=== PATIENT | female | born 1975 | race Caucasian/White ===

== ENCOUNTER → 2016-12-06 | Outpatient (CLI) | payer BC ==
--- NOTE | 2016-12-06 14:08 | DIAGNOSTIC IMAGING REPORT ---
ABDOMEN 2VIEW W/PA CHEST RTN HISTORY: 41 years-old Female R10.9 Abdominal pain COMPARISON: None available TECHNIQUE: Frontal view of the chest with erect and supine views of the abdomen. FINDINGS: The cardiomediastinal and hilar silhouettes are within normal limits. There is no pneumothorax, pleural effusion, focal airspace consolidation or overt pulmonary edema. Bones of the thorax appears intact. There is mild convex right curvature of the midthoracic spine. There is mild gaseous distention of the stomach. 5 mm calcification projects over the superior pole left kidney. Likely phleboliths are seen within the pelvis. The bowel gas pattern is nonobstructive. There is moderate volume of formed stool within the right hemicolon. Mild degenerative changes involve the bilateral hips. IMPRESSION: 1. No acute cardiopulmonary process. 2. Mild gaseous distention of the stomach without evidence of bowel obstruction. 3. 5 mm left superior pole renal calculus. The above report was generated using voice recognition software. It may contain grammatical, syntax or spelling errors. Electronically signed by: Ayo Beltran M.D. 12/06/2016 2:07 PM Dictated Date/Time: 12/06/2016 2:04 PM
[2016-12-06 17:29] LABS: BASO % 0.3 %; BASO ABS # 0.02 K/uL (0-0.2); COMPLETE YES; EOS % 3.1 %; IG% 0.3 %; LYMPH % 25.4 %; LYMPH ABS # 1.74 K/uL (1.2-3.4); MEAN CELL VOLUME 95.6 fL (80-100); MEAN CORPUSCULAR HEMOGLOBIN 31.6 pg (25-34); MEAN CORPUSCULAR HGB CONC 33.1 g/dl (32-36); MEAN PLATELET VOLUME 10.1 fL (7.4-10.4); MONO % 7.4 %; NEUT % 63.5 %; PLATELET COUNT 297 K/uL (130-400); RED BLOOD COUNT 4.08 M/uL (4.2-5.4); WHITE BLOOD COUNT 6.85 K/uL (4.8-10.8)
[2016-12-06 17:41] LABS: AMYLASE 47 U/L (25-115); BLOOD UREA NITROGEN 16 mg/dl (7-18); BUN/CREATININE RATIO 17.5 (10-20); CALCIUM 9.8 mg/dl (8.5-10.1); CARBON DIOXIDE 27 mmol/L (21-32); CHLORIDE 105 mmol/L (98-107); CREATININE 0.89 mg/dl (0.60-1.20); GLUCOSE 96 mg/dl (70-99); POTASSIUM 3.7 mmol/L (3.5-5.1); SODIUM 141 mmol/L (136-145)
[2016-12-06 17:45] LABS: ALB/GLOB RATIO 1.1 (0.9-2); ALKALINE PHOSPHATASE 72 U/L (45-117); ALT/SGPT 29 U/L (12-78); AST/SGOT 16 U/L (15-37)
== END | disposition home or self-care (01) ==
LOC: C.LABBFT 12:54
PROVIDERS: ATTEND Physician Assistant Medical
DX: R10.9 Unspecified abdominal pain (principal); N20.0 Calculus of kidney

== ENCOUNTER → 2017-02-16 | Outpatient (CLI) | payer BC ==
--- NOTE | 2017-02-17 08:29 | MAMMOGRAPHY REPORT ---
BILATERAL DIGITAL SCREENING MAMMOGRAM TOMOSYNTHESIS WITH CAD: 02/16/2017 CLINICAL HISTORY: Routine screening. Patient has no complaints. TECHNIQUE: Breast tomosynthesis in addition to standard 2D mammography was performed. Current study was also evaluated with a Computer Aided Detection (CAD) system. COMPARISON: Comparison is made to exams dated: 01/11/2016 mammogram, 12/26/2014 mammogram, 10/01/2013 m ammogram, 05/12/2010 mammogram - [facility], 12/31/2007, and 12/22/2006. BREAST COMPOSITION: There are scattered areas of fibroglandular density in both breasts. FINDINGS: No suspicious masses, calcifications, or areas of architectural distortion are noted in ei ther breast. There has been no significant interval change compared to prior exams. Scattered bilater al benign-appearing calcifications are not significantly changed. Linear scar markers denote scars o n bilateral upper outer breasts. IMPRESSION: ACR BI-RADS CATEGORY 2: BENIGN There is no mammographic evidence of malignancy. A 1 year screening mammogram is recommended. The pa tient will receive written notification of the results. Approximately 10% of breast cancers are not detected with mammography. A negative mammographic report should not delay biopsy if a clinically suggestive mass is present. Nery Brewster M.D. ah/:02/16/2017 15:46:50 Emergency Dispatcher: Altagracia MAZA(Carmelo)(M), [facility] letter sent: Normal 1/2 BI-RADS Code: ACR BI-RADS Category 2: Benign
== END | disposition home or self-care (01) ==
LOC: C.MAMM 15:19
PROVIDERS: ATTEND Obstetrics & Gynecology
DX: Z12.31 Encounter for screening mammogram for malignant neoplasm of breast (principal)

== ENCOUNTER 2020-09-01 02:43 | Inpatient (IN) ==
[2020-09-01] MEDS ORDERED: SODIUM CHLORIDE 0.9% 1000ML 1,000 ML IV ONE ×2 (02:59→05:31)
[2020-09-01] MEDS ORDERED: KETOROLAC TROMETHAMINE 15 MG/ML VIAL IV STA (02:59)
[2020-09-01] MEDS ORDERED: ONDANSETRON INJ 2 MG/ML 2 ML VIAL IV STA (02:59)
--- NOTE | 2020-09-01 03:02 | Emergency Department Note ---
Impression & Plan Calculus of proximal left ureter, Hydronephrosis, left ED Provider Note Name: MALENA YEE Age: 45 Sex: F Arrives Via: Walk-In Informant: Patient ED Provider: Tavo Miller MD Chief Complaint: left flank pain Impression: Calculus of proximal left ureter Left Hydronephrosis Medical Decision Makin yr old healthy female without PMH arrives for acute left flank pain overnight. Uncomfortable on arrival though did seem to do well with Toradol initially. CT obtained reveals proximal left ureteral stone with hydro. Labs unremarkable. UA with 4+ bacteria though also some epithelia cells. Complicating this was an episode of hypotension with SBP 70s, which responded to NSS bolus without issue. Patient without symptoms during this other than feeling tired, no chest pain, syncope, nor other symptoms. Labs without wbc elevation and no fever. Seems unlikely sepsis. Rocephin was given for urine coverage after discussion with Urologist and hospitalist will bring in for monitoring/management. Patient comfortable with plan. Triage/Nursing Notes reviewed by Me Differentials:Renal colic, UTI, appendicitis, diverticulitis, mesenteric ischemia, aortic pathology, infections, inflammatory bowel disease, PUD, biliary pathology, as well as other pathologies. Vital Signs: reviewed and remarkable for no significant abnormalities Interventions: saline lock, nss bolus, toradol iv, dilaudid iv, rocephin iv Labs:Reviewed and remarkable for no significant abnormalities Imaging:[facility] Radiologist interpretation reviewed by me: left prox 7mm ureteral stone Consults:Dr Sesay Uro, Dr Villar Hospitalist Plan: Disposition:Hospitalization. Condition: Good History of Present Illness:45 yr old female arrives for evaluation of left flank pain. Notes sudden onset left flank pain radiating from left back to left lower abdomen. Associated with nausea. Comes in waves. Nothing makes better nor worse. No trauma nor injury. Used Advil with minimal relief earlier in evening. Had chills earlier which have resolved. No fevers, chest pain, shortness of breath, vomiting, rashes, headache, neck, leg swelling, nor other symptoms. History of Hysterectomy. No new medications, no diets, no new work- out routines. ROS: See above HPI for pertinent positives & negatives. A total of 10 systems reviewed and were otherwise negative. 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 EYES: No scleral icterus, unremarkable pupils. ENT: Mucous membranes moist, no nasal congestion. NECK: No masses appreciated, nomeningismus, trachea is midline. RESPIRATORY: No dyspnea. Clear to auscultation and equal bilaterally. No wheeze, no rhonchi. CARDIOVASCULAR: Regular rate and rhythm.No murmurs, rubs, gallops appreciated. GASTROINTESTINAL: Abdomen soft, non-tender, no peritonitis.Bowel sounds positive.No masses appreciated. BACK: No midline tenderness, no CVA tenderness EXTREMITIES: Normal motion all extremities, no cyanosis, no edema. NEUROLOGIC: Alert and oriented, no acute motor or sensory deficits, no focal weakness, cranial nerves grossly intact. SKIN: No rash, no jaundice, no diaphoresis. PSYCH: Appropriate GCS: 15 ED Course: Times/Reassessments: Stable, did have hypotension responded to iv fluids Tavo Miller MD Past Med/Surg History Surgical History (Updated 09/01/20 @ 06:33 by Kandy Villar DO) History of Family History (Updated 09/01/20 @ 06:33 by Kandy Villar DO) Other Diabetes Hypertension Social History (Updated 09/01/20 @ 06:34 by Kandy Villar DO) Smoking Status: Never smoker Hx Alcohol Use: No Hx Substance Use: No Preferred Language: Maltese Feels Safe at Home: Yes Allergies Allergies Allergy/AdvReac Type Severity Reaction Status Date / Time banana Allergy Mild Unknown Verified 09/01/20 02:52 Penicillins Allergy Unknown HIVES Verified 09/01/20 02:52 amoxicillin Allergy Unknown Verified 09/01/20 02:52 Home Meds Home Medications Medication Instructions Recorded Confirmed No Known Home Medications 09/01/20 09/01/20 Results & Data (ED) Vital Signs Vital Signs - 24 hr 09/01/20 02:46 09/01/20 03:13 09/01/20 04:00 Temperature 36.4 C L Temperature Source Temporal Artery Scan Pulse Rate 91 H 90 59 L Pulse Rate [Right Finger] Pulse Rate from SpO2 Sensor Pulse Rhythm Regular Pulse Rhythm [Right Finger] Pulse Strength Normal Pulse Strength [Right Finger] Respiratory Rate 20 22 15 Respiratory Effort / Characteristics Non-Labored Respiratory Depth Normal Respiratory Pattern Regular Blood Pressure 123/72 114/74 77/44 L Blood Pressure [Right Arm] Blood Pressure Mean 89 87 55 Blood Pressure Mean [Right Arm] Blood Pressure Position Sitting Pulse Oximetry 100 99 99 Oxygen Delivery Method Room Air Sepsis Recent Fever Within 48 Hours No Sepsis New/Unexplained Change in Mental Status N/A Sepsis Action Taken by Nursing No Action Required 09/01/20 04:03 09/01/20 04:25 09/01/20 05:00 Temperature Temperature Source Pulse Rate 72 90 97 H Pulse Rate [Right Finger] 65 Pulse Rate from SpO2 Sensor Pulse Rhythm Pulse Rhythm [Right Finger] Regular Pulse Strength Pulse Strength [Right Finger] Normal Respiratory Rate 15 21 23 Respiratory Effort / Characteristics Non-Labored Spontaneous Respiratory Depth Normal Respiratory Pattern Blood Pressure 79/49 L 108/56 L 107/73 Blood Pressure [Right Arm] 79/47 L Blood Pressure Mean 59 73 84 Blood Pressure Mean [Right Arm] 57 Blood Pressure Position Pulse Oximetry 100 99 99 Oxygen Delivery Method Room Air Sepsis Recent Fever Within 48 Hours Sepsis New/Unexplained Change in Mental Status Sepsis Action Taken by Nursing 09/01/20 06:00 09/01/20 06:30 Temperature Temperature Source Pulse Rate 102 H 93 H Pulse Rate [Right Finger] Pulse Rate from SpO2 Sensor 93 H Pulse Rhythm Pulse Rhythm [Right Finger] Pulse Strength Pulse Strength [Right Finger] Respiratory Rate 20 21 Respiratory Effort / Characteristics Respiratory Depth Respiratory Pattern Blood Pressure 98/66 L Blood Pressure [Right Arm] Blood Pressure Mean 76 Blood Pressure Mean [Right Arm] Blood Pressure Position Pulse Oximetry 98 98 Oxygen Delivery Method Sepsis Recent Fever Within 48 Hours Sepsis New/Unexplained Change in Mental Status Sepsis Action Taken by Nursing Laboratory Data Result diagrams: 09/01/20 03:05 09/01/20 03:05 Lab Results 09/01/20 09/01/20 09/01/20 Range/Units 03:05 03:05 04:52 WBC 7.80 (4.8-10.8) K/uL RBC 4.00 L (4.2-5.4) M/uL Hgb 12.7 (12.0-16.0) g/dL Hct 37.4 (37-47) % MCV 93.5 (80-100) fL MCH 31.8 (25-34) pg MCHC 34.0 (32-36) g/dL RDW Std Deviation 44.6 (36.4-46.3) fL RDW Coeff of Danis 12.9 (11.5-14.5) % Plt Count 235 (130-400) K/uL MPV 9.3 (7.4-10.4) fL Immature Gran % (Auto) 0.3 % Neut % (Auto) 77.7 % Lymph % (Auto) 14.6 % [place] % (Auto) 4.9 % Eos % (Auto) 2.4 % Baso % (Auto) 0.1 % Neut # (Auto) 6.06 (1.4-6.5) K/uL Lymph # (Auto) 1.14 L (1.2-3.4) K/uL [place] # (Auto) 0.38 (0.11-0.59) K/uL Eos # (Auto) 0.19 (0-0.5) K/uL Baso # (Auto) 0.01 (0-0.2) K/uL Immature Gran # (Auto) 0.02 (0.00-0.02) K/uL Sodium 140 (136-145) mmol/L Potassium 3.7 (3.5-5.1) mmol/L Chloride 108 H (98-107) mmol/L Carbon Dioxide 25 (21-32) mmol/L Anion Gap 7.0 (3-11) BUN 14 (7-18) mg/dl Creatinine 0.92 (0.6-1.2) mg/dl Est Cr Clr Drug Dosing 77.9 ml/min Est GFR ( Amer) 85.9 Est GFR (Non-Af Amer) 74.2 BUN/Creatinine Ratio 15.6 (10-20) Glucose 149 H (70-99) mg/dl Calcium 8.6 (8.5-10.1) mg/dl Total Bilirubin 0.4 (0.2-1) mg/dl Direct Bilirubin 0.1 (0-0.2) mg/dl AST 18 (15-37) U/L ALT 46 (12-78) U/L Alkaline Phosphatase 69 (45-117) U/L Total Protein 7.3 (6.4-8.2) gm/dl Albumin 3.8 (3.4-5.0) gm/dl Lipase 136 (73-393) U/L Urine Color Yellow Urine Appearance Cloudy A (Clear) Urine pH 7.0 (4.5-7.5) Ur Specific [place] 1.019 (1.000-1.030) Urine Protein Trace H (Negative) Urine Glucose (UA) Negative (Negative) Urine Ketones Negative (Negative) Urine Blood 3+ H (Negative) Urine Nitrite Positive A (Negative) Urine Bilirubin Negative (Negative) Urine Urobilinogen Negative (Negative) Ur Leukocyte Esterase 1+ H (Negative) Urine WBC (Auto) >30 H (0-5) /hpf Urine RBC (Auto) >30 H (0-4) /hpf U Hyaline Cast (Auto) 10-30 H (0-5) /lpf U Epithel Cells (Auto) 10-20 H (0-5) /lpf Urine Bacteria (Auto) 4+ H (Negative) COVID-19 Eval Order SARS-CoV-2 (PCR) (Negative) Influenza Type A (PCR) (Neg) Influenza Type B (PCR) (Neg) RSV (RT-PCR) (Neg) 09/01/20 09/01/20 Range/Units 05:36 05:36 WBC (4.8-10.8) K/uL RBC (4.2-5.4) M/uL Hgb (12.0-16.0) g/dL Hct (37-47) % MCV (80-100) fL MCH (25-34) pg MCHC (32-36) g/dL RDW Std Deviation (36.4-46.3) fL RDW Coeff of Danis (11.5-14.5) % Plt Count (130-400) K/uL MPV (7.4-10.4) fL Immature Gran % (Auto) % Neut % (Auto) % Lymph % (Auto) % [place] % (Auto) % Eos % (Auto) % Baso % (Auto) % Neut # (Auto) (1.4-6.5) K/uL Lymph # (Auto) (1.2-3.4) K/uL [place] # (Auto) (0.11-0.59) K/uL Eos # (Auto) (0-0.5) K/uL Baso # (Auto) (0-0.2) K/uL Immature Gran # (Auto) (0.00-0.02) K/uL Sodium (136-145) mmol/L Potassium (3.5-5.1) mmol/L Chloride (98-107) mmol/L Carbon Dioxide (21-32) mmol/L Anion Gap (3-11) BUN (7-18) mg/dl Creatinine (0.6-1.2) mg/dl Est Cr Clr Drug Dosing ml/min Est GFR ( Amer) Est GFR (Non-Af Amer) BUN/Creatinine Ratio (10-20) Glucose (70-99) mg/dl Calcium (8.5-10.1) mg/dl Total Bilirubin (0.2-1) mg/dl Direct Bilirubin (0-0.2) mg/dl AST (15-37) U/L ALT (12-78) U/L Alkaline Phosphatase (45-117) U/L Total Protein (6.4-8.2) gm/dl Albumin (3.4-5.0) gm/dl Lipase (73-393) U/L Urine Color Urine Appearance (Clear) Urine pH (4.5-7.5) Ur Specific [place] (1.000-1.030) Urine Protein (Negative) Urine Glucose (UA) (Negative) Urine Ketones (Negative) Urine Blood (Negative) Urine Nitrite (Negative) Urine Bilirubin (Negative) Urine Urobilinogen (Negative) Ur Leukocyte Esterase (Negative) Urine WBC (Auto) (0-5) /hpf Urine RBC (Auto) (0-4) /hpf U Hyaline Cast (Auto) (0-5) /lpf U Epithel Cells (Auto) (0-5) /lpf Urine Bacteria (Auto) (Negative) COVID-19 Eval Order CovFluRsv at [facility] SARS-CoV-2 (PCR) NEGATIVE (Negative) Influenza Type A (PCR) Negative (Neg) Influenza Type B (PCR) Negative (Neg) RSV (RT-PCR) Negative (Neg) Administered Medications Hydromorphone HCl (Hydromorphone Inj 0.5 Mg/0.5 Ml Syr) 0.5 mg IV Q15M PRN PRN Reason: Pain Stop: 09/15/20 05:30 Last Admin: 09/01/20 05:46 Dose: 0.5 mg Documented by: [id number] Discontinued Medications Hydromorphone HCl (Hydromorphone Inj 0.5 Mg/0.5 Ml Syr) 0.5 mg IV NOW STA Stop: 09/01/20 04:54 Last Admin: 09/01/20 04:56 Dose: 0.5 mg Documented by: [id number] Sodium Chloride (Nss 1000ml) 1,000 mls @ 999 mls/hr IV .Q1H1M ONE Stop: 09/01/20 03:59 Last Infusion: 09/01/20 04:47 Dose: 0 mls/hr Documented by: [id number] Admin: 09/01/20 03:13 Dose: 999 mls/hr Documented by: [id number] Sodium Chloride (Nss 1000ml) 1,000 mls @ 999 mls/hr IV .Q1H1M ONE Stop: 09/01/20 06:31 Last Infusion: 09/01/20 07:00 Dose: 0 mls/hr Documented by: [id number] Admin: 09/01/20 05:46 Dose: 999 mls/hr Documented by: [id number] Ceftriaxone Sodium (Rocephin) 2,000 mg in 70 mls @ 140 mls/hr IV NOW STA Stop: 09/01/20 06:00 Last Infusion: 09/01/20 06:25 Dose: 0 mls/hr Documented by: [id number] Admin: 09/01/20 05:44 Dose: 140 mls/hr Documented by: [id number] Ketorolac Tromethamine (Ketorolac Tromethamine 15 Mg/Ml Vial) 15 mg IV NOW STA Stop: 09/01/20 03:00 Last Admin: 09/01/20 03:13 Dose: 15 mg Documented by: [id number] Ondansetron HCl (Ondansetron Inj 2 Mg/Ml 2 Ml Vial) 4 mg IV NOW STA Stop: 09/01/20 03:00 Last Admin: 09/01/20 03:13 Dose: 4 mg Documented by: [id number] Discharge Plan Visit Data Chief Complaint: Flank Pain Stated Complaint: PAIN IN LEFT SIDE ED Provider: Tavo Miller Discharge Problem: Calculus of proximal left ureter, Hydronephrosis, left Patient Disposition: Admitted As Inpatient Discharge Instructions Interventions: ED Discharge Assessment Last Done: 09/01/20 07:30
[2020-09-01 03:16] LABS: Basophils # (auto) 0.01 K/uL (0-0.2); Basophils % (auto) 0.1 %; Eosinophils # (auto) 0.19 K/uL (0-0.5); Eosinophils % (auto) 2.4 %; Hematocrit (blood only) 37.4 % (37-47); Hemoglobin 12.7 g/dL (12.0-16.0); Immature Granulocytes # (auto) 0.02 K/uL (0.00-0.02); Immature Granulocytes % (auto) 0.3 %; Lymphocytes # (auto) 1.14 K/uL (1.2-3.4); Lymphocytes % (auto) 14.6 %; Mean Corpuscular Hemoglobin 31.8 pg (25-34); Mean Corpuscular Volume 93.5 fL (80-100); Mean Platelet Volume 9.3 fL (7.4-10.4); Monocytes # (auto) 0.38 K/uL (0.11-0.59); Monocytes % (auto) 4.9 %; Neutrophils # (auto) 6.06 K/uL (1.4-6.5); Neutrophils % (auto) 77.7 %; Platelet Count 235 K/uL (130-400); RDW Coefficient of Variation 12.9 % (11.5-14.5); RDW Standard Deviation 44.6 fL (36.4-46.3)
[2020-09-01 03:35] LABS: Albumin Level 3.8 gm/dl (3.4-5.0); BUN Creatinine Ratio 15.6 (10-20); Bilirubin Direct 0.1 mg/dl (0-0.2); Calcium 8.6 mg/dl (8.5-10.1); Creatinine Clr Calc Pharmacy 77.9 ml/min; Est GFR (African American) 85.9; Est GFR (Non-African American) 74.2; Potassium 3.7 mmol/L (3.5-5.1)
[2020-09-01 03:37] LABS: Bilirubin,Total 0.4 mg/dl (0.2-1); Total Protein 7.3 gm/dl (6.4-8.2)
[2020-09-01] MEDS ORDERED: HYDROmorphone INJ 0.5 MG/0.5 ML SYR IV STA (04:53)
[2020-09-01 05:18] LABS: Appearance Urine Cloudy (Clear); Bacteria Urine Automated 4+ (Negative); Bilirubin Urine Negative (Negative); Blood Urine 3+ (Negative); Color Urine Yellow; Glucose Urine UA Negative (Negative); Ketones Urine Negative (Negative); Leukocyte Esterase Urine 1+ (Negative); Nitrite Urine Positive (Negative); Protein Urine Trace (Negative); RBC Urine Automated >30 /hpf (0-4); Specific Gravity Urine 1.019 (1.000-1.030); Urobilinogen Urine Negative (Negative); WBC Urine Automated >30 /hpf (0-5)
[2020-09-01] MEDS ORDERED: HYDROmorphone INJ 0.5 MG/0.5 ML SYR IV PRN (05:31)
[2020-09-01] MEDS ORDERED: cefTRIAXone SODIUM 2,000 MG/70 ML BAG IV STA (05:31)
[2020-09-01 06:24] LABS: Influenza A virus by PCR Negative (Neg); Influenza B virus by PCR Negative (Neg); RSV by PCR Negative (Neg); SARS CoV2 RNA(COVID-19) InHosp NEGATIVE (Negative)
--- NOTE | 2020-09-01 06:36 | History & Physical Report ---
Date of Service September 01, 2020 Assessment & Plan (1) Hydronephrosis with obstructing calculus: -Admit to medical with telemetry -Continue IVF -Zofran PRN -Tylenol PRN -Ceftriaxone 1 gm IV daily -Strain urine -Flomax 0.4mg po daily -Toradol PRN pain -Dilaudid PRN pain -Urology consultation appreciated F/E/N - NSS, electroltyes WNL, NPO for now Ppx - Low risk Code - Full Dispo - Admit to medical with telemetry Present on Admission?: Yes History of Present Illness Chief Complaint: left flank pain Primary Care Provider: Toby Hays MD 45yo female with left flank pain with radiation into left groin, worsening last night around 19:00. Found with 7mm obstructing stone with hydronephrosis and UTI. Pain controlled at present, no additional complaints at this time ER Course: Ceftriaxone, Dilaudid, Toradol, Zofran, NSS Allergies Allergy/AdvReac Type Severity Reaction Status Date / Time banana Allergy Mild Unknown Verified 09/01/20 02:52 Penicillins Allergy Unknown HIVES Verified 09/01/20 02:52 amoxicillin Allergy Unknown Verified 09/01/20 02:52 Home Medications Medication Instructions Recorded Confirmed Type No Known Home Medications 09/01/20 09/01/20 History Past Med/Surg History Surgical History (Updated 09/01/20 @ 06:33 by Kandy Villar DO) History of Family History (Updated 09/01/20 @ 06:33 by Kandy Villar DO) Other Diabetes Hypertension Social History (Updated 09/01/20 @ 06:34 by Kandy Villar DO) Smoking Status: Never smoker Hx Alcohol Use: No Hx Substance Use: No Preferred Language: Mosotho Feels Safe at Home: Yes Review of Systems Review of Systems: All systems reviewed & are unremarkable except as noted in HPI & below Physical Exam Physical Exam: General: patient resting comfortably, NAD, non-toxic in appearance, AA&O x 4 Skin: warm, dry, intact, no rashes or lesions HEENT: NC/AT, PERRL, EOMI, anicteric sclera, conjunctiva without injection, external ear normal to inspection and nontender, nares patent, moist mucus membranes, dentition intact, no oropharyngeal lesions, neck supple, trachea midline, no LAD, no thyromegaly, no JVD Heart: +S1/S2, regular, no m/r/g Lungs: equal air entry bilaterally, no rales/rhonchi/wheezes Abd: +BS, soft, NT/ND, no masses/organomegaly/ascites Ext: warm, 2+ pulses in UE/LE bilaterally, no clubbing/cyanosis or edema Neuro: nonfocal, patient AA&O x 4, speech intact, no facial droop, moving all extremities on command with equal strength 5/5 Results & Data Results & Data ([facility]) Vital Signs (Past 12 Hours) Vital Signs Temp Pulse Pulse Resp BP BP Pulse Ox 09/01/20 06:00 102 H 20 98/66 L 98 09/01/20 05:00 97 H 23 107/73 99 09/01/20 04:25 90 21 108/56 L 99 09/01/20 04:03 72 65 15 79/49 L 79/47 L 100 09/01/20 04:00 59 L 15 77/44 L 99 09/01/20 03:13 90 22 114/74 99 09/01/20 02:46 36.4 C L 91 H 20 123/72 100 Laboratory Results Lab Results 09/01/20 09/01/20 09/01/20 Range/Units 03:05 03:05 04:52 WBC 7.80 (4.8-10.8) K/uL RBC 4.00 L (4.2-5.4) M/uL Hgb 12.7 (12.0-16.0) g/dL Hct 37.4 (37-47) % MCV 93.5 (80-100) fL MCH 31.8 (25-34) pg MCHC 34.0 (32-36) g/dL RDW Std Deviation 44.6 (36.4-46.3) fL RDW Coeff of Danis 12.9 (11.5-14.5) % Plt Count 235 (130-400) K/uL MPV 9.3 (7.4-10.4) fL Immature Gran % (Auto) 0.3 % Neut % (Auto) 77.7 % Lymph % (Auto) 14.6 % [place] % (Auto) 4.9 % Eos % (Auto) 2.4 % Baso % (Auto) 0.1 % Neut # (Auto) 6.06 (1.4-6.5) K/uL Lymph # (Auto) 1.14 L (1.2-3.4) K/uL [place] # (Auto) 0.38 (0.11-0.59) K/uL Eos # (Auto) 0.19 (0-0.5) K/uL Baso # (Auto) 0.01 (0-0.2) K/uL Immature Gran # (Auto) 0.02 (0.00-0.02) K/uL Sodium 140 (136-145) mmol/L Potassium 3.7 (3.5-5.1) mmol/L Chloride 108 H (98-107) mmol/L Carbon Dioxide 25 (21-32) mmol/L Anion Gap 7.0 (3-11) BUN 14 (7-18) mg/dl Creatinine 0.92 (0.6-1.2) mg/dl Est Cr Clr Drug Dosing 77.9 ml/min Est GFR ( Amer) 85.9 Est GFR (Non-Af Amer) 74.2 BUN/Creatinine Ratio 15.6 (10-20) Glucose 149 H (70-99) mg/dl Calcium 8.6 (8.5-10.1) mg/dl Total Bilirubin 0.4 (0.2-1) mg/dl Direct Bilirubin 0.1 (0-0.2) mg/dl AST 18 (15-37) U/L ALT 46 (12-78) U/L Alkaline Phosphatase 69 (45-117) U/L Total Protein 7.3 (6.4-8.2) gm/dl Albumin 3.8 (3.4-5.0) gm/dl Lipase 136 (73-393) U/L Urine Color Yellow Urine Appearance Cloudy A (Clear) Urine pH 7.0 (4.5-7.5) Ur Specific [place] 1.019 (1.000-1.030) Urine Protein Trace H (Negative) Urine Glucose (UA) Negative (Negative) Urine Ketones Negative (Negative) Urine Blood 3+ H (Negative) Urine Nitrite Positive A (Negative) Urine Bilirubin Negative (Negative) Urine Urobilinogen Negative (Negative) Ur Leukocyte Esterase 1+ H (Negative) Urine WBC (Auto) >30 H (0-5) /hpf Urine RBC (Auto) >30 H (0-4) /hpf U Hyaline Cast (Auto) 10-30 H (0-5) /lpf U Epithel Cells (Auto) 10-20 H (0-5) /lpf Urine Bacteria (Auto) 4+ H (Negative) COVID-19 Eval Order SARS-CoV-2 (PCR) (Negative) Influenza Type A (PCR) (Neg) Influenza Type B (PCR) (Neg) RSV (RT-PCR) (Neg) 09/01/20 09/01/20 Range/Units 05:36 05:36 WBC (4.8-10.8) K/uL RBC (4.2-5.4) M/uL Hgb (12.0-16.0) g/dL Hct (37-47) % MCV (80-100) fL MCH (25-34) pg MCHC (32-36) g/dL RDW Std Deviation (36.4-46.3) fL RDW Coeff of Danis (11.5-14.5) % Plt Count (130-400) K/uL MPV (7.4-10.4) fL Immature Gran % (Auto) % Neut % (Auto) % Lymph % (Auto) % [place] % (Auto) % Eos % (Auto) % Baso % (Auto) % Neut # (Auto) (1.4-6.5) K/uL Lymph # (Auto) (1.2-3.4) K/uL [place] # (Auto) (0.11-0.59) K/uL Eos # (Auto) (0-0.5) K/uL Baso # (Auto) (0-0.2) K/uL Immature Gran # (Auto) (0.00-0.02) K/uL Sodium (136-145) mmol/L Potassium (3.5-5.1) mmol/L Chloride (98-107) mmol/L Carbon Dioxide (21-32) mmol/L Anion Gap (3-11) BUN (7-18) mg/dl Creatinine (0.6-1.2) mg/dl Est Cr Clr Drug Dosing ml/min Est GFR ( Amer) Est GFR (Non-Af Amer) BUN/Creatinine Ratio (10-20) Glucose (70-99) mg/dl Calcium (8.5-10.1) mg/dl Total Bilirubin (0.2-1) mg/dl Direct Bilirubin (0-0.2) mg/dl AST (15-37) U/L ALT (12-78) U/L Alkaline Phosphatase (45-117) U/L Total Protein (6.4-8.2) gm/dl Albumin (3.4-5.0) gm/dl Lipase (73-393) U/L Urine Color Urine Appearance (Clear) Urine pH (4.5-7.5) Ur Specific [place] (1.000-1.030) Urine Protein (Negative) Urine Glucose (UA) (Negative) Urine Ketones (Negative) Urine Blood (Negative) Urine Nitrite (Negative) Urine Bilirubin (Negative) Urine Urobilinogen (Negative) Ur Leukocyte Esterase (Negative) Urine WBC (Auto) (0-5) /hpf Urine RBC (Auto) (0-4) /hpf U Hyaline Cast (Auto) (0-5) /lpf U Epithel Cells (Auto) (0-5) /lpf Urine Bacteria (Auto) (Negative) COVID-19 Eval Order CovFluRsv at [facility] SARS-CoV-2 (PCR) NEGATIVE (Negative) Influenza Type A (PCR) Negative (Neg) Influenza Type B (PCR) Negative (Neg) RSV (RT-PCR) Negative (Neg) PG Care Time/CCT Total # of Minutes Spent Total Time Spent with Patient: Total time spent is greater than 50% in coordination of care (as documented) at patient's floor/unit and/or counseling patient: Coding Level of Care Code 02540 Initial Inpt Care Lvl 2 Diagnoses Hydronephrosis with obstructing calculus N13.2
--- NOTE | 2020-09-01 08:26 | CT Scan Report ---
CT SCAN OF THE ABDOMEN AND PELVIS WITHOUT CONTRAST CLINICAL HISTORY: acute left flank pain COMPARISON STUDY: No previous studies for comparison. TECHNIQUE: CT scan of the abdomen and pelvis was performed from the lung bases to the proximal femurs . Images are reviewed in the axial, sagittal, and coronal planes. IV contrast was not administered fo r this examination. A dose lowering technique was utilized adhering to the principles of ALARA. CT DOSE: 1364.97 mGy.cm FINDINGS: Lower chest: The heart is normal in size and configuration, without pericardial effusion. The lung ba ses and pleural spaces are clear. Liver: There is hepatic steatosis. There is a 15 mm left lobe hepatic cyst. There is a very subtle in determinate 17 mm hypodensity within the right hepatic lobe Gallbladder: Unremarkable. Spleen: Normal in size and attenuation. Pancreas: Unremarkable. Adrenal glands: Unremarkable. Kidneys: There is left-sided hydronephrosis and perinephric stranding. There are 2 tangential obstruc ting proximal left ureteral calculi the largest of which measures 5 mm. Bowel: There are no transition zones indicate bowel obstruction. The appendix appears normal. There i s no acute diverticulitis. Peritoneum: There is no intraperitoneal free air or abdominal ascites. A small fat-containing umbilic al hernia. Vasculature: The abdominal aorta is normal in course and caliber. Adenopathy: None. Pelvic viscera: The uterus is either atrophic or surgically absent. Skeletal structures: No destructive osseous lesions are seen. IMPRESSION: 1. No evidence of bowel obstruction. No evidence of free air 2. Normal appendix. No evidence of acute diverticulitis 3. Tangential obstructing proximal left ureteral calculi, the largest of which measures 5 mm 4. Indeterminate 17 mm hypodense lesion within the right hepatic lobe. If further evaluation is rita ed, an MRI would be considered the test of choice in follow-up. 5. Hepatic steatosis ACT 112: Negative or not required by law. Electronically signed by: Gen Edward M.D. 09/01/2020 8:25 AM
[2020-09-01] MEDS ORDERED: ACETAMINOPHEN 325 MG TAB PO PRN (08:32)
[2020-09-01] MEDS ORDERED: HYDROmorphone INJ 1 MG/ML SYRINGE IV PRN (08:32)
[2020-09-01] MEDS ORDERED: ONDANSETRON INJ 2 MG/ML 2 ML VIAL IV PRN ×2 (08:32→13:30)
[2020-09-01] MEDS: KETOROLAC TROMETHAMINE 15 MG/ML VIAL IV PRN (08:46)
[2020-09-01] MEDS: LACTATED RINGER'S 1,000 ML IV SCH ×2 (09:07→19:11)
--- NOTE | 2020-09-01 09:42 | Urology Consultation ---
Date of Consultation September 01, 2020 Assessment & Plan (1) Calculus of proximal left ureter: (2) Hydronephrosis, left: 45 year-old female patient admitted with intractable left flank-sided pain with associated nausea secondary to 2 tangential obstructing proximal left ureteral calculi with suspected UTI. -Patient afebrile. -Labs reviewed - white count and creatinine normal. -Urine suspicious for infection, await results of urine culture. -Imaging reviewed - CT abd/pelvis notable for two tangential obstructing proximal left ureteral calculi, largest of which measures 5 mm. -Continue supportive care and antibiotic therapy. -Strain all urine. -Keep NPO for planned procedure. Findings reviewed with Dr. Sweeney. Given her left flank pain and suspected UTI in the context of an two obstructing proximal left ureteral calculi, will proceed with OR for cystoscopy, left retrograde pyelogram, and left stent placement. Risks and benefits of the procedure discussed and to be reviewed with patient by Dr. Sweeney. OR notified. Preoperative CXR and EKG ordered. Patient covered preoperatively with IV Ceftriaxone. COVID-19 negative. Supervising Physician Co-Signing Physician Notes agree with above. plan for cysto, left ureteral stent now History of Present Illness Reason for Consultation: Obstructing ureteral stone, UTI Attending Physician: Kandy Villar DO History of Present Illness 45 year-old female patient, with past medical history of hypercholesterolemia, exercise-induced asthma, palpitations, and history of paroxysmal supraventricular tachycardia, presented to the emergency room with sudden onset left flank pain that radiated into left lower abdomen. Pain started around 7:00 pm last evening and worsened around 11:00 pm before arriving to ER. She did have associated nausea with pain. Denies vomiting, fevers, or chills. Urology consulted due to obstructing stone and suspected UTI. Patient has not followed with urology in the past. She denies personal or family history of kidney stones. Chart review: Afebrile Hypotension overnight, 77/44 - most recent blood pressure 116/68 Wbc 7.80 Hgb 12.7 Creatinine 0.92 Urinalysis +1 leukocytes, >30 wbc, >30 rbc, +4 bacteria, nitrate positive. Urine culture pending. Patient received 2 gram IV Rocephin at 0544 this am. Imaging - CT abd/pelvis without contrast IMPRESSION: 1. No evidence of bowel obstruction. No evidence of free air 2. Normal appendix. No evidence of acute diverticulitis 3. Tangential obstructing proximal left ureteral calculi, the largest of which measures 5 mm 4. Indeterminate 17 mm hypodense lesion within the right hepatic lobe. If furth er evaluation is desired, an MRI would be considered the test of choice in follow-up. 5. Hepatic steatosis Patient examined at bedside. She is alert, awake, non-toxic in appearance. She continues to have left-sided flank pain. Has received IV pain medication which has helped make pain more tolerable. She states she has not experienced nausea recently. Denies vomiting. Denies fevers but does report intermittent chills. Denies dysuria or hematuria. Denies urinary urgency/frequency. Feels at times she does not fully empty her bladder. She does not take any medications at home for urinary pattern. She last ate yesterday evening. Has been NPO since midnight. COVID-19 test negative during admission. Denies additional urologic concerns today. Allergies Allergy/AdvReac Type Severity Reaction Status Date / Time banana Allergy Mild Unknown Verified 09/01/20 02:52 Penicillins Allergy Unknown HIVES Verified 09/01/20 02:52 amoxicillin Allergy Unknown Verified 09/01/20 02:52 Home Medications Medication Instructions Recorded Confirmed Type No Known Home Medications 09/01/20 09/01/20 History Patient History Surgical History History of Family History Other Diabetes Hypertension Social History Smoking Status: Never smoker Second Hand Exposure: No; Hx Alcohol Use: Yes Alcohol type: other Hx Substance Use: No Preferred Language: P[place] Communication Ability: Effective 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 Beliefs That Will Affect Care: Islam Islam Beliefs: Jew Current Living Situation: Spouse Feels Safe at Home: Yes Assistive Devices: Glasses Review of Systems Constitutional: as per Subjective / HPI and + chills; no fever Eyes: no problem reported Ear, Nose, Mouth, Throat: no dizziness Respiratory: no cough and no dyspnea Cardiovascular: no chest pain and no edema Gastrointestinal: as per Subjective / HPI Genitourinary: as per Subjective / HPI Musculoskeletal: as per Subjective / HPI Neurologic: no dizziness Endocrine: no fatigue Hematologic / Lymphatic: no easy bleeding and no easy bruising Physical Exam Constitutional: well developed and well nourished; no acute distress and not ill appearing ENMT: Ears: no external ear abnormality Nose: no external nose abnormality Neck: normal visual inspection and trachea midline Respiratory: normal respiratory effort and able to speak in complete sentences; no respiratory distress and no audible wheezes Cardiovascular: Extremities: no calf tenderness and no edema Gastrointestinal (Abdomen): Inspection/Auscultation: abdomen normal to inspection; abdomen not distended Percussion/Palpation: abdomen soft; no guarding Musculoskeletal: Moves all extremities without difficulty. Skin: No visible rashes, lesions, or wounds noted. Neurologic: moves all extremities and awake Psychiatric: Orientation: alert, oriented x 3 and cooperative Affect: euthymic affect Genitourinary: no CVA tenderness Results & Data ([facility]) Vital Signs (Past 12 Hours) Vital Signs Temp Pulse Pulse Resp BP BP Pulse Ox 09/01/20 07:01 83 19 98 09/01/20 07:00 97 H 21 116/68 97 09/01/20 06:30 93 H 21 98 09/01/20 06:00 102 H 20 98/66 L 98 09/01/20 05:00 97 H 23 107/73 99 09/01/20 04:25 90 21 108/56 L 99 09/01/20 04:03 72 65 15 79/49 L 79/47 L 100 09/01/20 04:00 59 L 15 77/44 L 99 09/01/20 03:13 90 22 114/74 99 09/01/20 02:46 36.4 C L 91 H 20 123/72 100 PG Care Time/CCT Total # of Minutes Spent Total Time Spent with Patient: Total time spent is greater than 50% in coordination of care (as documented) at patient's floor/unit and/or counseling patient: Coding Level of Care Code 34153 Inpt Consult Level 4 Diagnoses Calculus of proximal left ureter N20.1 Hydronephrosis, left N13.30
--- NOTE | 2020-09-01 10:52 | XRay Report ---
XR chest 2V PA/lateral CLINICAL HISTORY: Preoperative chest COMPARISON STUDY: 12/06/2016 FINDINGS: The heart is enlarged. There is no focal pulmonary consolidation. There are no pleural effu sions. There is mild interstitial prominence, finding which may be in part secondary to the patient's body habitus. Mild pulmonary vascular congestion however cannot be excluded IMPRESSION: 1. Mild cardiomegaly 2. Mild interstitial prominence. Mild pulmonary vascular congestion versus body habitus artifact 3. No evidence of focal pulmonary consolidation ACT 112: Negative or not required by law. Electronically signed by: Gen Edward M.D. 09/01/2020 10:51 AM
[2020-09-01] MEDS: TAMSULOSIN HCL 0.4 MG CAP PO SCH (11:02)
--- NOTE | 2020-09-01 13:20 | Anesthesiology Consultation ---
Date of Service September 01, 2020 Assessment & Plan (1) Encounter for pre-operative examination: Chart Review Chart Review: Acceptable Risk for Surgery and Patient NOT seen in Pre Admission Testing Consults Requested none History Surgery Operation Date: 09/01/20 14:00 Proposed Procedures p Cystoscopy, Left Retrograde Pyelogram, Left Stent Insertion - Curtis Sweeney MD Height/Weight Height: 5 ft 1 in Weight: 91.4 kg Allergies Allergy/AdvReac Type Severity Reaction Status Date / Time banana Allergy Mild Unknown Verified 09/01/20 02:52 Penicillins Allergy Unknown HIVES Verified 09/01/20 02:52 amoxicillin Allergy Unknown Verified 09/01/20 02:52 Medications Home Medications Medication Instructions Recorded Confirmed Last Taken No Known Home Medications 09/01/20 09/01/20 Unknown Active Medications Generic Name Dose Route Start Last Admin Trade Name Freq PRN Reason Stop Dose Admin Hydromorphone HCl 1 mg 09/01/20 08:32 09/01/20 10:34 Hydromorphone Inj 1 Mg/Ml Syringe IV 09/15/20 08:31 1 mg Q4H PRN Administration Pain Lactated Ringer's 1,000 mls @ 125 mls/hr 09/01/20 08:32 09/01/20 09:07 Lr IV 09/02/20 00:31 125 mls/hr .Q8H KIMBERLY Administration Ketorolac Tromethamine 15 mg 09/01/20 08:32 09/01/20 08:46 Ketorolac Tromethamine 15 Mg/Ml Vial IV 09/06/20 08:31 15 mg Q6H PRN Administration Pain Ondansetron HCl 4 mg 09/01/20 08:32 09/01/20 10:33 Ondansetron Inj 2 Mg/Ml 2 Ml Vial IV 10/01/20 08:31 4 mg Q6H PRN Administration Nausea And Vomiting Tamsulosin HCl 0.4 mg 09/01/20 09:00 09/01/20 11:02 Tamsulosin Hcl 0.4 Mg Cap PO 10/01/20 08:59 0.4 mg QAM KIMBERLY Administration NPO Date Last Intake of Fluids: 09/01/20 Time Last Intake of Fluids: 01:30 Date Last Intake of Solids: 09/01/20 Time Last Intake of Solids: 23:45 Past Family History Family History Other Diabetes Hypertension Past Surgical History Surgical History History of Social History Smoking Status: Never smoker Do You Dip or Chew Tobacco: No Hx Alcohol Use: Yes Alcohol type: other alcohol intake frequency: other Alcohol Intake Frequency Comment: Wine cooler- "Once in a blue encarnacion." Hx Substance Use: No substance use type: does not use Physical Exam Vital Signs Last Vital Signs Temp 37.8 C H 09/01/20 13:13 Pulse 117 H 09/01/20 13:13 Resp 20 09/01/20 13:13 BP 110/67 09/01/20 13:13 Pulse Ox 95 09/01/20 13:13 Testing Laboratory Results 09/01/20 03:05 09/01/20 03:05 Urine Color Yellow 09/01/20 04:52 Urine Appearance Cloudy (Clear) A 09/01/20 04:52 Urine pH 7.0 (4.5-7.5) 09/01/20 04:52 Ur Specific Hydro 1.019 (1.000-1.030) 09/01/20 04:52 Urine Protein Trace (Negative) H 09/01/20 04:52 Urine Glucose (UA) Negative (Negative) 09/01/20 04:52 Urine Ketones Negative (Negative) 09/01/20 04:52 Urine Nitrite Positive (Negative) A 09/01/20 04:52 Ur Leukocyte Esterase 1+ (Negative) H 09/01/20 04:52 Urine WBC (Auto) >30 /hpf (0-5) H 09/01/20 04:52 Urine RBC (Auto) >30 /hpf (0-4) H 09/01/20 04:52 U Hyaline Cast (Auto) 10-30 /lpf (0-5) H 09/01/20 04:52 U Epithel Cells (Auto) 10-20 /lpf (0-5) H 09/01/20 04:52 Urine Bacteria (Auto) 4+ (Negative) H 09/01/20 04:52
[2020-09-01] MEDS ORDERED: PROPOFOL IV EMULSION 10 MG/ML 20 ML VIAL IV ONE (13:23)
[2020-09-01] MEDS ORDERED: MIDAZOLAM HCL 1 MG/ML 2ML VIAL ONE (13:23)
[2020-09-01] MEDS ORDERED: fentaNYL citrate 100 MCG/2 ML VIAL ONE (13:23)
[2020-09-01] MEDS ORDERED: PROMETHAZINE HCL 12.5 MG in SODIUM CHLORIDE 0.9% 50 ML IV PRN (13:30)
[2020-09-01] MEDS ORDERED: fentaNYL citrate 100 MCG/2 ML VIAL IV PRN (13:30)
[2020-09-01] MEDS ORDERED: ATROPINE SULFATE 0.1 MG/ML 10ML SYR IV PRN (13:30)
[2020-09-01] MEDS ORDERED: ePHEDrine sulfate 50 MG/ML AMP IV PRN (13:30)
[2020-09-01] MEDS ORDERED: ACETAMINOPHEN 1000 MG/100 ML IV IV ONE (13:42)
[2020-09-01] MEDS ORDERED: ONDANSETRON INJ 2 MG/ML 2 ML VIAL ONE (14:05)
--- NOTE | 2020-09-01 14:09 | Operative Report ---
PG Post Operative Report Pre & Post Diagnosis Operation Date: 09/01/20 14:00 Pre: Left ureteral calculus Post: left ureteral calculus I identified the patient and participated in the time-out.: Yes Procedure Operation Date: 09/01/20 14:00 Procedure: cysto, left ureteral stent placement Surgeon Toby Sweeney MD Instructional Systems Design Consultant none Estimated Blood Loss 0 Findings Consistent with Post-Op Diagnosis Specimens none Description of Procedure The patient was identified in the preoperative holding area, appropriate informed consents were reviewed and completed and the patient was transferred to the operative suite. Upon arrival, appropriate antibiotics and anesthesia were administered and the patient was placed in dorsal lithotomy position and prepped and draped in sterile fashion. To be in the case I passed a 22 [place]i cystoscope with 30 degree lens. Inspection revealed a healthy-appearing bladder aside from a notable bladder prolapse. Ureteral orifices were identified with significant deflection of the scope. I turned my attention to the left UO and cannulated with a sensor wire and a 5 [place]i open-ended catheter. The wire advanced the kidney without difficulty. I then placed a 6 [place]i by 24 cm double-J stent. There was good curl in the bladder as well as the kidney. Of note, despite a short stature5 foot 1 inch, her prolapse made this stent barely long enough. I subsequently emptied her bladder concluded the case. She was reversed of anesthesia and taken to the recovery room in stable condition. There were no complications. I attest to the content of the Intraoperative Record and any orders documented therein. Any exceptions are noted below.
--- NOTE | 2020-09-01 14:26 | Fluoroscopy Report ---
BRODY GERMAN CLINICAL HISTORY: LEFT STENT COMPARISON STUDY: 12/06/2016 FLUOROSCOPY TIME: 16 seconds. NUMBER OF FLUOROSCOPIC IMAGES: 2 FINDINGS: 2 intraprocedural fluoroscopic spot images are provided for interpretation. These demonstra te a left-sided nephroureteral stent. The proximal and distal pigtails or not fully formed. IMPRESSION: Fluoroscopic spot images obtained during placement of a left-sided nephroureteral stent ACT 112: Negative or not required by law. Electronically signed by: Gen Edward M.D. 09/01/2020 2:24 PM
--- NOTE | 2020-09-01 14:47 | Anesthesiology Progress Note ---
Date of Service September 01, 2020 Anesthesia Post Procedure Vital Signs Vital Signs: Temp Pulse Pulse Pulse Resp BP BP 09/01/20 14:40 37.1 C 113 H 19 96/57 L 09/01/20 14:30 109 H 17 87/58 L 09/01/20 14:20 109 H 18 86/54 L 09/01/20 14:13 36.9 C 114 H 19 88/54 L 09/01/20 13:13 37.8 C H 117 H 20 110/67 09/01/20 11:16 37.2 C 107 H 18 113/70 09/01/20 08:05 84 09/01/20 07:44 37.0 C 98 H 16 107/69 09/01/20 07:01 83 19 09/01/20 07:00 97 H 21 116/68 09/01/20 06:30 93 H 21 09/01/20 06:00 102 H 20 98/66 L 09/01/20 05:00 97 H 23 107/73 09/01/20 04:25 90 21 108/56 L 09/01/20 04:03 72 65 15 79/49 L 79/47 L 09/01/20 04:00 59 L 15 77/44 L 09/01/20 03:13 90 22 114/74 09/01/20 02:46 36.4 C L 91 H 20 123/72 Pulse Ox 09/01/20 14:40 91 09/01/20 14:30 91 09/01/20 14:20 95 09/01/20 14:13 93 09/01/20 13:13 95 09/01/20 11:16 92 09/01/20 08:05 09/01/20 07:44 98 09/01/20 07:01 98 09/01/20 07:00 97 09/01/20 06:30 98 09/01/20 06:00 98 09/01/20 05:00 99 09/01/20 04:25 99 09/01/20 04:03 100 09/01/20 04:00 99 09/01/20 03:13 99 09/01/20 02:46 100 Pain Intensity Left Flank: Pain Intensity: 0 Transfer of Care Handoff Completed per policy Notes Mental Status: alert / awake / arousable and participated in evaluation Nausea / Vomiting: adequately controlled Pain: adequately controlled Airway Patency, RR, SpO2: stable & adequate BP & HR: stable & adequate Hydration State: stable & adequate Anesthetic Complications: no major complications apparent and Pt Satisfied with anesthetic care
--- NOTE | 2020-09-01 14:52 | Electrocardiogram Report ---
Test Reason : Blood Pressure : / mmHG Vent. Rate : 115 BPM Atrial Rate : 115 BPM P-R Int : 148 ms QRS Dur : 090 ms QT Int : 340 ms P-R-T Axes : 026 023 127 degrees QTc Int : 470 ms Sinus tachycardia Abnormal ECG No previous ECGs available Confirmed by Toby Fuentes ([id number]) on 09/01/2020 2:52:00 PM Referred By: REFERRED SELF Confirmed By:Lance Fuentes
--- NOTE | 2020-09-01 19:41 | History & Physical Bridge Note ---
Date of Service September 01, 2020 History & Physical Bridge Note I have examined the patient, reviewed the History & Physical and in the interval since the performance of the History & Physical I have noted the following changes of clinical significance: Patient seen after return from the operating room where she had a left ureteral stent placed. She had some mild hypotension intraoperatively and has been in some low-grade sinus tachycardia. She is feeling much better and has no pain at this time. Has a little bit of bloody drainage in her urine, but denies abdominal pains. Denies chest pain or shortness of breath, no nausea or lightheadedness. She is tolerating p.o. She denies any history of cardiac issues and normally can go up and down stairs without any shortness of breath or chest pain. ECG ordered by urology shows sinus tachycardia with rate 115, ST and T wave abnormality with anterolateral T wave inversions and flattening diffusely through precordial leads, no old EKG to compare to Chest x-ray with possible pulmonary vascular congestion 45-year-old female here with left ureterolithiasis and UTI. With some mild hypotension and sinus tachycardia with abnormal ECG Continue ceftriaxone and LR Continue Flomax Toradol and Dilaudid as well as Tylenol as needed for pain Repeat ECG in the morning and consider echocardiogram tomorrow if abnormalities persist in the ECG. She is otherwise asymptomatic from a cardiac standpoint. She has no risk factors for coronary artery disease
[2020-09-02] MEDS: KETOROLAC TROMETHAMINE 15 MG/ML VIAL IV PRN (03:12)
[2020-09-02] MEDS ORDERED: cefTRIAXone SODIUM 2,000 MG in DEXTROSE 5% 50 ML IV SCH (06:00)
[2020-09-02 07:57] LABS: Basophils # (auto) 0.01 K/uL (0-0.2); Basophils % (auto) 0.1 %; Eosinophils # (auto) 0.07 K/uL (0-0.5); Eosinophils % (auto) 0.8 %; Hematocrit (blood only) 32.5 % (37-47); Hemoglobin 10.7 g/dL (12.0-16.0); Immature Granulocytes # (auto) 0.02 K/uL (0.00-0.02); Immature Granulocytes % (auto) 0.2 %; Lymphocytes # (auto) 1.01 K/uL (1.2-3.4); Lymphocytes % (auto) 12.2 %; Mean Corpuscular Hemoglobin 31.4 pg (25-34); Mean Corpuscular Hgb Conc 32.9 g/dL (32-36); Mean Corpuscular Volume 95.3 fL (80-100); Mean Platelet Volume 9.7 fL (7.4-10.4); Monocytes # (auto) 0.66 K/uL (0.11-0.59); Neutrophils # (auto) 6.49 K/uL (1.4-6.5); Neutrophils % (auto) 78.7 %; Platelet Count 148 K/uL (130-400); RDW Coefficient of Variation 13.6 % (11.5-14.5); RDW Standard Deviation 47.7 fL (36.4-46.3); Red Blood Count 3.41 M/uL (4.2-5.4); White Blood Count 8.26 K/uL (4.8-10.8)
[2020-09-02] MEDS: TAMSULOSIN HCL 0.4 MG CAP PO SCH (08:22)
[2020-09-02 08:28] LABS: BUN Creatinine Ratio 17.1 (10-20); Creatinine Clr Calc Pharmacy 87.6 ml/min; Est GFR (African American) 97.3; Potassium 3.8 mmol/L (3.5-5.1)
--- NOTE | 2020-09-02 10:01 | XRay Report ---
KUB HISTORY: left ureteral stone COMPARISON: Abdomen and pelvis CT 09/01/2020. FINDINGS: The bowel gas pattern is unremarkable. There are no dilated loops of small bowel to suggest an obstruction. Interval placement of a left ureteral stent. The 7 mm stone at the left ureteropelv ic junction now resides within the left renal pelvis at the looped portion of the proximal stent. No ureteral calculi. Stable calcifications in the deep pelvis consistent with phleboliths. No right jerson l calculi. No pneumoperitoneum or pneumatosis. IMPRESSION: 1. Interval placement of a left ureteral stent which appears in good position. 2. The 7 mm stone at the left ureteropelvic junction on the prior CT examination now resides within t he left renal pelvis at the looped portion of the proximal stomach. ACT 112: Negative or not required by law. Electronically signed by: Cole Ortega M.D. 09/02/2020 10:00 AM
--- NOTE | 2020-09-02 12:19 | Urology Progress Note ---
Date of Service September 02, 2020 Assessment & Plan (1) Calculus of proximal left ureter: (2) Hydronephrosis, left: 45 year-old female POD#1 cystoscopy and left stent placement secondary to left ureteral stone and UTI. - Patient doing well, progressing as expected - Afebrile, labs reviewed - white count and creatinine normal - Tolerating ureteral stent with minimal bother - UC&S preliminary growing E. coli, no sensitivities at this time. Continue IV antibiotics and transition to PO upon discharge - KUB shows 7 mm stone at left UPJ on prior CT is now within the left renal pelvis - Okay to d/c home from perspective when medically stable - Recommend PO antibiotics, prn pyridium, prn oxybutynin and prn pain management upon discharge - Expected clinical course reviewed, all questions answered - Will arrange outpatient follow-up with our service to discuss definitive stone management Thank you for allowing us to participate in the acute care of Ms. Castle. Please reconsult us with additional questions, concerns or changes in patient status. Admission and Anticipated Discharge Date Admission Date: September 01, 2020 Subjective 45 year-old female POD#1 cystoscopy and left stent placement secondary to left ureteral stone and UTI. Patient awake and alert, sitting up in bed. No issues overnight. Offers no complaints at present. No flank, abdominal or suprapubic pain. Voiding without difficulty. No dysuria. Hematuria clearing. Tolerating PO diet, no nausea or vomiting. No fever or chills. No additional concerns today. Chart review: Afebrile, creatinine 0.83, WBC 8.26. UC&S prelim E. coli. On IV Ceftriaxone. Review of Systems Constitutional: as per Subjective / HPI Gastrointestinal: as per Subjective / HPI Genitourinary: as per Subjective / HPI Physical Exam Constitutional: well developed and well nourished; no acute distress and not ill appearing Respiratory: normal respiratory effort and able to speak in complete sentences; no respiratory distress and no labored breathing Cardiovascular: Extremities: no pedal edema Gastrointestinal (Abdomen): Inspection/Auscultation: abdomen normal to inspection; abdomen not distended Musculoskeletal: Head/Neck/Chest: normocephalic and head atraumatic Skin: no rashes, warm and dry Psychiatric: Orientation: alert and oriented x 3 Results & Data ([facility]) Vital Signs (Past 12 Hours) Vital Signs Temp Pulse Pulse Resp BP Pulse Ox 09/02/20 11:51 36.9 C 92 H 18 110/72 94 09/02/20 08:05 36.6 C 88 18 97/66 L 93 09/02/20 07:00 77 09/02/20 03:00 37.1 C 86 18 100/67 95 09/02/20 00:19 88 PG Care Time/CCT Total # of Minutes Spent Total Time Spent with Patient: Total time spent is greater than 50% in coordination of care (as documented) at patient's floor/unit and/or counseling patient: Coding Level of Care Code None Diagnoses Calculus of proximal left ureter N20.1 Hydronephrosis, left N13.30
--- NOTE | 2020-09-02 15:22 | Electrocardiogram Report ---
Test Reason : Blood Pressure : / mmHG Vent. Rate : 091 BPM Atrial Rate : 091 BPM P-R Int : 132 ms QRS Dur : 094 ms QT Int : 360 ms P-R-T Axes : 032 020 008 degrees QTc Int : 443 ms Normal sinus rhythm Nonspecific T wave abnormality Abnormal ECG When compared with ECG of 01-SEP-2020 10:06, Nonspecific T wave abnormality has replaced inverted T waves in Lateral leads Confirmed by Toby Fuentes ([id number]) on 09/02/2020 3:22:10 PM Referred By: REFERRED SELF Confirmed By:Lance Fuentes
--- NOTE | 2020-09-02 15:46 | Discharge Summary ---
Date of Service September 02, 2020 Admission HPI Per Admitting Provider 45yo female with left flank pain with radiation into left groin, worsening last night around 19:00. Found with 7mm obstructing stone with hydronephrosis and UTI. Pain controlled at present, no additional complaints at this time ER Course: Ceftriaxone, Dilaudid, Toradol, Zofran, NSS Principal Diagnosis UTI, ureterolithiasis, abnormal ECG Discharge Exam Constitutional WD/WN, vitals as above Eyes + anicteric sclerae Neck trachea midline, no thyromegaly Respiratory normal respiratory effort, lungs clear to auscultation Cardiovascular RRR, no murmur, no edema Chest (Breasts) Chest: normal inspection of chest Gastrointestinal (Abdomen) normal bowel sounds, soft, nontender, no hepatosplenomegaly Musculoskeletal Extremities: extremities normal to inspection; no cyanosis and no clubbing Skin no rashes, warm and dry Neurologic moves all extremities and awake; no focal motor deficits Psychiatric A+Ox3, euthymic affect Lymphatic no lymphedema Discharge Data Allergies Allergy/AdvReac Type Severity Reaction Status Date / Time banana Allergy Mild Unknown Verified 09/01/20 02:52 Penicillins Allergy Unknown HIVES Verified 09/01/20 02:52 amoxicillin Allergy Unknown Verified 09/01/20 02:52 Consultations 09/01/20 05:44 ED Decision to Admit Stat 09/01/20 07:07 Consult Urology Routine 09/01/20 08:32 Consult Urology Routine Procedures Performed Operation Date: 09/01/20 14:00 Actual Procedures p Ureteral Stent Insertion/Removal(Left) - Curtis Sweeney MD Ordered Studies 09/01/20 FL KUB Routine 09/01/20 02:59 CT abd pelvis wo con Urgent Abdomen Fluoroscopy 09/01/20 00:00 FL KUB CLINICAL HISTORY: LEFT STENT COMPARISON STUDY: 12/06/2016 FLUOROSCOPY TIME: 16 seconds. NUMBER OF FLUOROSCOPIC IMAGES: 2 FINDINGS: 2 intraprocedural fluoroscopic spot images are provided for interpretation. These demonstrate a left-sided nephroureteral stent. The proximal and distal pigtails or not fully formed. IMPRESSION: Fluoroscopic spot images obtained during placement of a left-sided nephroureteral stent ACT 112: Negative or not required by law. Electronically signed by: Gen Edward M.D. 09/01/2020 2:24 PM Abdomen/Pelvis CT 09/01/20 02:59 CT SCAN OF THE ABDOMEN AND PELVIS WITHOUT CONTRAST CLINICAL HISTORY: acute left flank pain COMPARISON STUDY: No previous studies for comparison. TECHNIQUE: CT scan of the abdomen and pelvis was performed from the lung bases to the proximal femurs. Images are reviewed in the axial, sagittal, and coronal planes. IV contrast was not administered for this examination. A dose lowering technique was utilized adhering to the principles of ALARA. CT DOSE: 1364.97 mGy.cm FINDINGS: Lower chest: The heart is normal in size and configuration, without pericardial effusion. The lung bases and pleural spaces are clear. Liver: There is hepatic steatosis. There is a 15 mm left lobe hepatic cyst. There is a very subtle indeterminate 17 mm hypodensity within the right hepatic lobe Gallbladder: Unremarkable. Spleen: Normal in size and attenuation. Pancreas: Unremarkable. Adrenal glands: Unremarkable. Kidneys: There is left-sided hydronephrosis and perinephric stranding. There are 2 tangential obstructing proximal left ureteral calculi the largest of which measures 5 mm. Bowel: There are no transition zones indicate bowel obstruction. The appendix appears normal. There is no acute diverticulitis. Peritoneum: There is no intraperitoneal free air or abdominal ascites. A small fat-containing umbilical hernia. Vasculature: The abdominal aorta is normal in course and caliber. Adenopathy: None. Pelvic viscera: The uterus is either atrophic or surgically absent. Skeletal structures: No destructive osseous lesions are seen. IMPRESSION: 1. No evidence of bowel obstruction. No evidence of free air 2. Normal appendix. No evidence of acute diverticulitis 3. Tangential obstructing proximal left ureteral calculi, the largest of which measures 5 mm 4. Indeterminate 17 mm hypodense lesion within the right hepatic lobe. If further evaluation is desired, an MRI would be considered the test of choice in follow-up. 5. Hepatic steatosis ACT 112: Negative or not required by law. Electronically signed by: Gen Edward M.D. 09/01/2020 8:25 AM Chest X-Ray 09/01/20 09:42 XR chest 2V PA/lateral CLINICAL HISTORY: Preoperative chest COMPARISON STUDY: 12/06/2016 FINDINGS: The heart is enlarged. There is no focal pulmonary consolidation. There are no pleural effusions. There is mild interstitial prominence, finding which may be in part secondary to the patient's body habitus. Mild pulmonary vascular congestion however cannot be excluded IMPRESSION: 1. Mild cardiomegaly 2. Mild interstitial prominence. Mild pulmonary vascular congestion versus body habitus artifact 3. No evidence of focal pulmonary consolidation ACT 112: Negative or not required by law. Electronically signed by: Gen Edward M.D. 09/01/2020 10:51 AM KUB X-Ray 09/02/20 07:00 KUB HISTORY: left ureteral stone COMPARISON: Abdomen and pelvis CT 09/01/2020. FINDINGS: The bowel gas pattern is unremarkable. There are no dilated loops of small bowel to suggest an obstruction. Interval placement of a left ureteral stent. The 7 mm stone at the left ureteropelvic junction now resides within the left renal pelvis at the looped portion of the proximal stent. No ureteral calculi. Stable calcifications in the deep pelvis consistent with phleboliths. No right renal calculi. No pneumoperitoneum or pneumatosis. IMPRESSION: 1. Interval placement of a left ureteral stent which appears in good position. 2. The 7 mm stone at the left ureteropelvic junction on the prior CT examination now resides within the left renal pelvis at the looped portion of the proximal stomach. ACT 112: Negative or not required by law. Electronically signed by: Cole Ortega M.D. 09/02/2020 10:00 AM Echocardiogram-mild LVH, LVEF 60-65%, no valvular abnormalities, no wall motion abnormalities Hospital Course (1) Hydronephrosis with obstructing calculus: Patient presented with left flank pain and UTI symptoms. Was found to have left 7 mm ureteral stone. Had abnormal UA and was taken urgently for cystoscopy and left ureteral stent placement She was doing very well postoperatively and was not requiring any pain medication except for 1 dose of Toradol. -Seen by urology on the day of discharge and was stable for discharge home -Continue antibiotics with Cipro for UTI as below for 7 more days; she was treated with ceftriaxone IV in the hospital Continue oxybutynin and Pyridium as needed pain Continue acetaminophen as needed pain -Continue Flomax 0.4 mg p.o. once daily until stent removal -Received IV fluids -Urology consultation appreciated-plan to follow-up as an outpatient for definitive stone management and stent removal (2) Sinus tachycardia: Had sinus tachycardia on ECG and telemetry, associated with pain and acute infection Resolved after stent placement treatment IV antibiotics With abnormal ECG with T wave inversions in anterior leads and lateral leads which improved by the next day Echocardiogram was within normal limits No further follow-up needed (3) Hypotension: Had some intraoperative borderline hypotension which improved with IV fluids, possibly due to anesthesia Blood pressures were excellent at the time of discharge (4) UTI (urinary tract infection): Associated with ureterolithiasis Urine culture growing E. coli and sensitivities pending at the time of discharge Treated with IV ceftriaxone x3 doses and patient will send home with Cipro x7 more days as outpatient Follow-up on urine culture after discharge with PCP-if resistant to Cipro, would change antibiotics Overall seems to be much improved (5) Abnormal ECG: As above (6) Fatty liver: Noted to have fatty liver on CT abdomen/pelvis Weight loss and low carbohydrate diet are recommended Follow-up with PCP (7) Liver lesion: 17 mm hypodense lesion seen on CT abdomen/pelvis Patient was recommended to have outpatient follow-up with PCP with possible MRI of the abdomen/liver (8) DVT prophylaxis: Low risk, ambulating Disposition-stable for discharge home Total Time Total Time Spent Total Time Spent (In Minutes): 35 minutes Total Time Includes: Examination of the Patient, Discharge Planning, Medication Reconciliation and Communication With 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) Discharge Plan Discharge Items Patient Disposition: Home - Self-Care Reason For Visit: NEPHROLITHIASIS Discharge Diagnosis: Ureterolithiasis, UTI Condition on Discharge: Good Activity: As commented below Lifting: Gradually increase as tolerated Bathing: No limitations Exercise/Sports: Gradually increase as tolerated Non-emergency contact: Primary Care Provider and Urologist Call non-emergency contact if: you have any medication questions, your symptoms worsen, your pain is not controlled, your pain is worsening, your pain is unusual for you, your pain is concerning for you, you have a fever and your temperature is above 101 Follow-up/Referrals: Curtis Hays MD [Primary Care Provider] - (Follow-up within 1 to 2 weeks.) Curtis Sweeney MD [Physician] - (Dr. Sweeney's office will contact you with your follow-up appointment date/time.) Diet: Regular Addtl Attending Provider Instructions: Please finish out the course of antibiotics for urinary tract infection as prescribed. You can take oxybutynin and/or Pyridium as needed for pain. You can also take Tylenol or ibuprofen as needed for pain. Follow-up with urology as planned-their office should be reaching out to you with the appointment date/time. You had a mildly abnormal EKG here but the echocardiogram of your heart was within normal limits. Incidentally, on the CT of your abdomen, your liver was found to be fatty and there was also a 17 mm lesion that was recommended to follow-up as an outpatient with an MRI. In general, fatty liver can be improved with weight loss and a low carbohydrate diet. The lesion in the liver is most likely benign but should be followed up on. Please discuss this with your primary care physician as an outpatient. Please follow-up with your primary care physician within 1 to 2 weeks. Pending Studies at Discharge: Yes Stand-Alone Forms: My [facility] Medications and DC Order Prescriptions: New acetaminophen 325 mg Tablet 650 mg PO Q4H PRN (Reason: pain) Qty: 30 RF: 0 tamsulosin 0.4 mg Capsule 0.4 mg PO QAM Qty: 14 RF: 0 ciprofloxacin HCl [Cipro] 500 mg tablet 500 mg PO BID 7 Days Qty: 14 RF: 0 oxybutynin chloride 5 mg tablet 5 mg PO BID PRN (Reason: bladder spasms) Qty: 10 RF: 0 phenazopyridine [Pyridium] 200 mg tablet 200 mg PO Q8H PRN (Reason: badder pain) Qty: 6 RF: 0 ibuprofen 200 mg tablet 600 mg PO TID PRN (Reason: pain) Qty: 20 RF: 0 No Action No Known Home Medications RF: 0 Discharge Orders: Discharge Order (Routine); Ordered 09/02/20 Ordered By: Mary White Admission Data Admit Date/Time: 09/01/20 06:31 Attending Provider: Mary White Admit Provider: Kandy Villar Primary Care Provider: Curtis Hays Other Providers: Ziyad Sesay ; Kandy Villar ; Richie Singh ; Curtis Sweeney ; Lavonne Harrison ; Kevin Ibarra ; Tricia Marr ; Dolores Garcia ; Lisa Joyce ; Isiah Curry ; Jazmin Blake ; Aleisha Spence Coding Level of Care Code D/C Day Management >30 mins Diagnoses Hydronephrosis with obstructing calculus N13.2 Sinus tachycardia R00.0 Hypotension I95.9 UTI (urinary tract infection) N39.0 Abnormal ECG R94.31 Fatty liver K76.0 Liver lesion K76.9 DVT prophylaxis Z29.9
--- NOTE | 2020-09-04 17:06 | Pharmacy Report ---
ED Pharmacist Culture FollowUP - Culture Follow Up Note Date of Service: September 04, 2020 Notes:: Received urine culture result from ED on 09/01, patient was admitted, treated with ceftriaxone and sent home with prescription for ciprofloxacin 500 mg BID x 7 days which should cover the marquez-sensitive E. coli growing in urine culture. No further action needed.
== END 2020-09-02 16:35 | disposition home or self-care (01) | DRG 661 ==
LOC: ED 02:43 → SUATTDRO 06:31 → 2N 06:31